=== PATIENT | male | born 1990 | race Caucasian/White ===

== ENCOUNTER 2016-04-08 19:22 | Emergency (ER) | payer OTHER | END 2016-04-08 20:58 | disposition home or self-care (01) | LOC: D.ER 19:22 | DX: J02.9 Acute pharyngitis, unspecified (principal); K21.9 Gastro-esophageal reflux disease without esophagitis; I10 Essential (primary) hypertension; F17.200 Nicotine dependence, unspecified, uncomplicated ==

== ENCOUNTER 2016-04-26 15:17 | Emergency (ER) | payer OTHER ==
[2016-04-26 15:51] LABS: BASOPHILS 0.6 % (0.0-2.0); EOSINOPHILS 7.5 % (0-7); HEMATOCRIT 35.6 % (42.0-54.0); HEMOGLOBIN 11.5 g/dL (13.5-17.5); IMMATURE GRANULOCYTES 0.5 % (0-5); LYMPHOCYTES 26.6 % (15-50); MCH 29.1 pg (26.0-34.0); MCHC 32.3 g/dL (31.0-37.0); MCV 90.1 fL (80.0-100.0); MEAN PLATELET VOLUME 9.6 fL (7.4-10.4); MONOCYTES 7.6 % (2-11); NEUTROPHILS 57.2 % (40-80); PLATELET COUNT 283 10x3/uL (130-400); RBC 3.95 10x6/uL (4.20-6.10); RDW 13.1 % (11.5-14.5); WBC 8.5 10x3/uL (4.8-10.8)
[2016-04-26 16:17] LABS: APPEARANCE CLEAR (CLEAR); BILIRUBIN NEGATIVE (NEGATIVE); COLOR YELLOW (YELLOW); GLUCOSE NEGATIVE (NEGATIVE); KETONE NEGATIVE (NEGATIVE); LEUKOCYTE ESTERASE NEGATIVE (NEGATIVE); NITRITE NEGATIVE (NEGATIVE); PROTEIN NEGATIVE (NEGATIVE); SPECIFIC GRAVITY 1.025 (1.005-1.020); UROBILINOGEN NORMAL (NORMAL)
== END 2016-04-26 17:07 | disposition home or self-care (01) ==
LOC: D.ER 15:17
PROVIDERS: Emergency Medicine
DX: K29.00 Acute gastritis without bleeding (principal)